=== PATIENT | male | born 1955 | race Two or more races ===

== ENCOUNTER 2017-01-12 11:09 | Observation (INO) | payer MEDICARE, OTHER ==
[~2017-01-12 11:09] MED LIST: AMBIEN10 MG; CENTRUM SILVER1 TA; DARVOCET-N 1001 TAB; EFFEXOR XR75 MG; FOLIC ACID1 MG; IBUPROFEN800 MG; LISINOPRIL20 MG; METHOCARBAMOL750 MG; METHOTREXATE2.5 MG; NORVASC5 MG; PREDNISONE5 MG; TRAMADOL HCL50 MG
[2017-01-12 11:29] LABS: BASO % 0.5 % (0-2); EOS % 1.7 % (0-7); EOSINOPHIL ABSOLUTE COUNT 0.1 tho/cmm (0.0-0.7); HCT-HEMATOCRIT 46.8 % (36.0-53.5); HGB-HEMOGLOBIN 16.4 gm/dl (13.5-17.0); IMMATURE GRANULOCYTES ABSOLUTE 0.01 tho/cmm (0-0.03); IMMATURE GRANULOCYTES PERCENT 0.2 % (0-0.3); LYMPH % 21.7 % (20-45); LYMPH ABSOLUTE COUNT 1.4 tho/cmm (0.8-4.5); MCH (MEAN CORPUSCULAR HGB) 33.1 pg (28.0-32.0); MCV (MEAN CELL VOLUME) 94.5 fl (82.0-96.0); MEAN PLATELET VOLUME 10.7 cmc (9.4-12.4); MONO % 5.8 % (0-12); MONOCYTE ABSOLUTE COUNT 0.4 tho/cmm (0.0-1.2); NEUTROPHIL ABSOLUTE COUNT 4.5 tho/cmm (1.6-8.0); NEUTROPHIL-AUTOMATED 4.5 tho/cmm (1.6-8.0); NEUTROPHILS % 70.1 % (40-80); PLATELET COUNT 151 tho/cmm (150-450); RED BLOOD COUNT 4.95 mil/cmm (4.40-5.70); RED CELL DISTRIBUTION WIDTH 13.5 % (12.4-16.4); WHITE BLOOD COUNT 6.4 tho/cmm (4.0-10.0)
[2017-01-12] MEDS ORDERED: HYDROCODON-ACE1 EA16 PO (11:36)
[2017-01-12] MEDS ORDERED: NORVASC10 M2 PO (11:47)
[2017-01-12] MEDS ORDERED: IBUPROFEN800 M1 PO (11:47)
[2017-01-12] MEDS ORDERED: PRINIVIL20 M1 PO (11:47)
[2017-01-12] MEDS ORDERED: OMEPRAZOLE20 M3 PO (11:47)
[2017-01-12] MEDS ORDERED: TRAZODONE HCL100 M1 PO (11:48)
[2017-01-12] MEDS ORDERED: EFFEXOR XR150 M1 PO (11:48)
[2017-01-12] MEDS ORDERED: PREDNISONE5 M1 PO (11:48)
[2017-01-12] MEDS ORDERED: AMBIEN10 M1 PO (11:48)
[2017-01-12 11:49] LABS: ANION GAP 11 mmol/L (0-20); BLOOD UREA NITROGEN 19 mg/dl (6-24); CARBON DIOXIDE-VENOUS 26 mmol/L (22-32); CHLORIDE 110 mmol/l (96-110); CREATININE 1.05 mg/dl (0.60-1.30); GLUCOSE 109 mg/dL (70-110); POTASSIUM 4.5 mmol/L (3.7-5.1); SODIUM 142 mmol/L (135-145); eGFR VALUE FOR BLACK 88 mL/Min
[2017-01-12 11:53] LABS: TSH-THYROID STIMULATING HORM. 1.48 uIU/ml (0.40-3.80)
[2017-01-12] MEDS ORDERED: ASPIRIN EC81 MG PO (11:56)
[2017-01-12] MEDS ORDERED: VITAMIN B-1100 M3 PO (11:56)
[2017-01-12] MEDS ORDERED: VITAMIN D31000 UNI3 PO (11:56)
[2017-01-13] MEDS ORDERED: TOPROL XL50 M1 PO (12:21)
[2017-01-13] MEDS ORDERED: FLECAINIDE ACE100 M1 PO (12:21)
[2017-01-13] MEDS ORDERED: XARELTO20 M1 PO (12:22)
== END 2017-01-13 12:55 ==
LOC: EDMED 11:09 → EMR2 13:11 → PCUA 14:44
PROVIDERS: Emergency Medicine; ADMIT Internal Medicine Cardiovascular Disease
PROC: 5A2204Z Restoration of Cardiac Rhythm, Single (ICD-10-PCS; principal; 2017-01-13)
DX: I48.91 Unspecified atrial fibrillation (principal); I10 Essential (primary) hypertension; M06.9 Rheumatoid arthritis, unspecified; F41.9 Anxiety disorder, unspecified; F32.9 Major depressive disorder, single episode, unspecified; K21.9 Gastro-esophageal reflux disease without esophagitis; Z79.82 Long term (current) use of aspirin; Z79.52 Long term (current) use of systemic steroids; Z79.899 Other long term (current) drug therapy; Z87.891 Personal history of nicotine dependence; Z82.49 Family history of ischemic heart disease and other diseases of the circulatory system; Z96.653 Presence of artificial knee joint, bilateral
CPT/HCPCS: G0378; J1650; J7030; J7512